=== PATIENT | female | born 1965 | race African-American/Black ===

== ENCOUNTER 2025-07-10 13:19 | Outpatient (CLI) | payer OTHER | END 2025-07-10 13:20 | disposition home or self-care (01) | LOC: CSHRAD 13:19 | PROVIDERS: ATTEND Nurse Practitioner Family | DX: M54.50 Low back pain, unspecified (principal); M25.511 Pain in right shoulder; M47.816 Spondylosis without myelopathy or radiculopathy, lumbar region; M43.16 Spondylolisthesis, lumbar region; M19.011 Primary osteoarthritis, right shoulder | CPT/HCPCS: 72100 ==